=== PATIENT | male | born 1985 | race Caucasian/White ===

== ENCOUNTER 2018-04-18 07:08 | Emergency (ER) | payer BC, MEDICAID ==
[~2018-04-18] VITALS: Ht 165.1 cm; Wt 75.0 kg
[2018-04-18] MEDS ORDERED: TETanus/Pertussis (Acell)/Diphther VAC/PF (Tdap-Adult) 0.5ml syringe IM ONE (08:15)
[2018-04-18 09:14] VITALS: BP 121/71
== END 2018-04-18 09:26 | disposition home or self-care (01) ==
LOC: ER 07:08
DX: S60.141A Contusion of right ring finger with damage to nail, initial encounter (principal); S61.551A Open bite of right wrist, initial encounter; S51.051A Open bite, right elbow, initial encounter; S61.452A Open bite of left hand, initial encounter; S01.352A Open bite of left ear, initial encounter; W50.3XXA Accidental bite by another person, initial encounter; Y93.89 Activity, other specified; Y92.89 Other specified places as the place of occurrence of the external cause; Y99.8 Other external cause status
CPT/HCPCS: 73140; 90471; 90715; 99284

== ENCOUNTER 2019-01-21 20:09 | Emergency (ER) | payer MEDICAID, OTHER ==
[~2019-01-21] VITALS: Ht 172.7 cm; Wt 76.0 kg
[2019-01-21 20:39] VITALS: BP 130/90
== END 2019-01-21 22:14 | disposition home or self-care (01) ==
LOC: ER 20:10
DX: M79.661 Pain in right lower leg (principal); R20.0 Anesthesia of skin; X58.XXXA Exposure to other specified factors, initial encounter; Y93.23 Activity, snow (alpine) (downhill) skiing, snowboarding, sledding, tobogganing and snow tubing; Y92.89 Other specified places as the place of occurrence of the external cause; Y99.8 Other external cause status
CPT/HCPCS: 73590; 99283

== ENCOUNTER 2025-07-29 10:05 | Outpatient (CLI) | payer MEDICAID ==
--- NOTE | 2025-07-29 13:20 | RADIOLOGY REPORT ---
CLINICAL INDICATION: OTHER INSTABILITY, LEFT KNEE TECHNIQUE: Multiplanar, multisequence MRI of the left knee was performed without contrast. Contrast: None. COMPARISON: None FINDINGS: Joint space and synovium: There is small knee joint effusion. No synovial thickening. Bones and articular cartilage: There is no evidence of acute fracture or bone marrow edema. There is anterior tibial translation. The articular cartilage is preserved in the patellofemoral compartment. There is chondral thinning on both sides of the medial compartment. Lateral compartment articular cartilage is intact. Menisci: There is a vertical tear of the posterior horn of the medial meniscus. There is a free edge tear of the lateral meniscus. Tendons and ligaments: The tendons in the posterior knee are intact. The extensor mechanism is intact. The anterior cruciate ligament is diminutive consistent with partial-thickness tear. The posterior cruciate ligament is intact. The medial collateral ligament and the lateral collateral ligament stabilizing complex are intact. Muscles: Regional muscles are preserved in bulk and signal characteristics. Other: None. IMPRESSION: 1. Vertical tear in the posterior horn of the medial meniscus of the left knee. 2. Free edge tear of the lateral meniscus. 3. Partial-thickness tear of the anterior cruciate ligament with anterior tibial translation. 4. 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 5. Small knee joint effusion.
== END 2025-07-29 23:59 | disposition home or self-care (01) ==
LOC: MRI02 10:05
PROVIDERS: ATTEND Family Medicine
DX: S83.512A Sprain of anterior cruciate ligament of left knee, initial encounter (principal); S83.282A Other tear of lateral meniscus, current injury, left knee, initial encounter; M25.362 Other instability, left knee; M94.262 Chondromalacia, left knee; M25.562 Pain in left knee; M25.462 Effusion, left knee; X58.XXXA Exposure to other specified factors, initial encounter; Y93.89 Activity, other specified; Y92.89 Other specified places as the place of occurrence of the external cause; Y99.8 Other external cause status
CPT/HCPCS: 73721